=== PATIENT | female | born 1960 | race Caucasian/White ===

== ENCOUNTER 2023-09-05 08:11 | Emergency (ER) | payer MEDICAID, SELFPAY ==
[2023-09-05 08:21] VITALS: BP 105/71; PULSE 99; RESP 18; TEMP 36.6; O2SAT 92; BMI 27.5
--- NOTE | 2023-09-05 08:48 | ED_ITS ---
HPI - General Adult General Time Seen by Provider: 08:48 Date Seen: 09/05/23 Chief complaint: Fever Stated complaint: fever, chills Time Seen by Provider: 09/05/23 08:48 Source: patient and RN notes reviewed Mode of arrival: ambulatory Limitations: no limitations History of Present Illness HPI narrative: This 63-year-old female is coming in in hopes that we can make her feel better and figure out what is going on with her. Wednesday night she started feeling very poorly, she states she was continually throwing up. Did have some diarrhea yesterday. With this she has had cough is well, headache, sore throat. No urinary symptoms, no history of UTIs, no abdominal pain. Vomiting has gone away, she is able to drink. She wants to know if this is COVID or something else. She has not taken anything at home per nursing report as she does not like come medicines make her feel. She has had some body aches. She has not taken her temperature but has felt warm and chilled at times, presumed fever. No known ill contacts, no travel. Denies any prior heart or lung issues. Is on no chronic medicines. She is a nonsmoker. No chest pain, no shortness of breath. Related Data Previous Rx's Medication Instructions Recorded azithromycin 250 mg tablet See Rx Instructions PO .COMPLEX #6 09/05/23 tabs ondansetron 4 mg disintegrating 4 mg PO Q6H PRN nausea and 09/05/23 tablet vomiting #20 tabs oseltamivir 75 mg capsule (Tamiflu) 75 mg PO BID 5 days #10 caps 09/05/23 Allergies Allergy/AdvReac Type Severity Reaction Status Date / Time No Known Drug Allergies Allergy Verified 09/05/23 08:21 Review of Systems Status of ROS: Reports: 6 or more systems reviewed and unremarkable except as noted in History and below ON LICENSE OF [facility] PFS Social History Smoking Status: Never smoker How often do you have a drink containing alcohol: never AUDIT-C Alcohol total score: 0 Non-prescribed substance use: denies use Exam Const: Vital Signs, click to edit/add: Vital Signs - 24 hr 09/05/23 08:21 Temperature 98 F Pulse Rate [Pulse Oximeter] 99 Respiratory Rate 18 Blood Pressure [Ri ght Upper Arm] 105/71 Pulse Oximetry 92 Oxygen Delivery Me thod Room Air This 63-year-old female is alert, interactive, no apparent distress. She looks like she does not feel well, cheeks are flushed but no rash. Skin does feel warm but not diaphoretic. See no rashes. Pupils equal round reactive, sclera clear. Able to speak in complete sentences. Neck is supple, no cervical adenopathy or masses. She has some rhonchi on the right lung field but she is lying on her right side, no wheezing or crackles, good air entry, no tachypnea. Left lung side is clear. She did cough a little bit during the interaction. CV regular rate and rhythm, no murmur, normal S1-S2, no S3-S4. Abdomen is soft, nontender, nondistended, no organomegaly, normal bowel sounds. Patient was ambulatory into the ED of her own accord. Documenting provider has reviewed patient's vital signs: yes Course Course ED Course: Have reviewed with the patient that this certainly sounds to have the potential for 1 of the viral pathogens such as COVID or influenza. She has had both GI and respiratory symptoms with this. Will get a portable chest x-ray just to e leeure we are not missing a possible lobar type pneumonia, community-acquired pneumonia. Nursing staff collected triple swab on arrival and we are waiting this. Do not feel at this point she needs further laboratory workup. Reevaluation(s) Time of Reevaluation #1: 09:51 Reevaluation #1: Reviewed with patient her chest x-ray findings and that she has influenza A. She would like to try Tamiflu, is in with the window of affective miss. Will send Zofran in case she does have increased nausea with the Tamiflu. With a chest x-ray findings, difficult to say whether this is viral or perhaps she already has a bacterial pneumonia starting. Will cover with antibiotics as well. She is in agreement with this plan. She is stable to discharge to home for trial of outpatient management. Vital Signs Vital signs: Initial Vital Signs Temperature 98 F 09/05/23 08:21 Temperature Source Temporal Artery Scan 09/05/23 08:21 Pulse Rate 99 09/05/23 08:21 Respiratory Rate 18 09/05/23 08:21 Respiratory Effort Normal, Spontaneous, Non-Labored 09/05/23 08:21 Respiratory Depth Normal 09/05/23 08:21 Respiratory Pattern Normal 09/05/23 08:21 Blood Pressure 105/71 09/05/23 08:21 Blood Pressure Mean 82 09/05/23 08:21 Pulse Oximetry 92 09/05/23 08:21 Oxygen Delivery Method Room Air 09/05/23 08:21 Sepsis Recent Fever Within 48 Hours No 09/05/23 08:21 Sepsis Action Taken by Nursing No Action Required 09/05/23 08:21 Vital Signs Temperature 98 F 09/05/23 08:21 Pulse Rate 99 09/05/23 08:21 Respiratory Rate 18 09/05/23 08:21 Blood Pressure 105/71 09/05/23 08:21 Pulse Oximetry 92 09/05/23 08:21 Oxygen Delivery Method Room Air 09/05/23 08:21 Temperature 98 F 09/05/23 08:21 Pulse Rate 99 09/05/23 08:21 Respiratory Rate 18 09/05/23 08:21 Blood Pressure 105/71 09/05/23 08:21 Pulse Oximetry 92 09/05/23 08:21 Oxygen Delivery Method Room Air 09/05/23 08:21 Medical Decision Making Lab Data Lab results reviewed: Yes I reviewed the patient's lab results Labs: Lab Results 09/05/23 Range/Units 08:20 SARS-CoV-2 (PCR) Negative SARS-CoV-2 (Negative) Influenza Type A (PCR) POSITIVE PCR FLU A A (Negative) Influenza Type B (PCR) Negative PCR FLU B (Negative) RSV (PCR) Negative PCR RSV (Negative) Imaging Data Chest x-ray: Attestation: I have reviewed the pertinent imaging results. My impression: Do see small area of consolidation left chest, await Radiology over-read. Otherwise I do not appreciate any acute infiltrates elsewhere. Radiologist's impression: Patient: CAROLE ROBISON Facility:?[facility] Patient ID:?[id number] Site Patient ID:?[id number]. Site :?[id number] Study:?XRay Chest 1 VIEW PORTABLE-09/05/2023 9:12:19 AM Ordering Physician:Ailyn Victor Final Report: INDICATION: Cough and fever. COMPARISON: None. TECHNIQUE: Portable AP chest. FINDINGS: Patchy infiltrates left lingula. No pneumothorax or pleural effusion. No evidence of CHF. IMPRESSION: Patchy infiltrates left lingula. Dictated by Arnoldo Molina MD @ 09/05/2023 9:36:37 AM (Electronic Signature) Critical Care Time Critical Care Time Critical Care Time: No Discharge Plan Discharge Clinical Impression: Influenza A Patient Disposition: Home, Self-Care Condition: Stable Instructions: Influenza (ED) Additional Instructions: Need to start Tamiflu as soon as possible today for this to be effective in helping to diminish the influenza symptoms. If you start the Tamiflu after this evening, it will not be effective and is no longer recommended to take as you are out of the 48 hour window from onset of symptoms. Can use Zofran if needed for any further nausea or vomiting, note Tamiflu can make some people feel sick to their stomach. May need to premedicate with the Zofran in order to tolerate the Tamiflu. A Z-Thuan is also sent in as the chest x-ray did show an area of infiltrate, I cannot tell you if this is viral or perhaps already an early pneumonia setting in; thus, we will treat with an antibiotic as well. Drink plenty of fluids, appetite for solids should improve as you are feeling better. Need to quarantine at home until you are improving from your symptoms and have been fever free for 24 hours off Tylenol and ibuprofen. Certainly do recommend taking Tylenol or ibuprofen following bottle directions for fever control, also can help with body aches, headache. If you are not improving over the next week, have concerns for worsening at any point, do recommend re-evaluation. Prescriptions: New oseltamivir [Tamiflu] 75 mg capsule 75 mg PO BID 5 Days Qty: 10 0RF ondansetron 4 mg tablet,disintegrating 4 mg PO Q6H PRN (Reason: nausea and vomiting) Qty: 20 0RF azithromycin 250 mg tablet See Rx Instructions .ROUTE .COMPLEX Qty: 6 0RF Rx Instructions: For 250 mg dose pack: take 500 mg today (day 1), then 250 mg for 4 days (days 2-5) Follow Up/Referrals: Provider,Not a Local [Primary Care Provider] - Stand Alone Forms: [employer] Info Instructions
--- NOTE | 2023-09-05 08:57 | CRLHL7_ITS ---
For Patients: As a result of the Cures Act, medical imaging exams and procedure reports are released immediately into your electronic medical record. You may view this report before your referring provider. If you have questions, please contact your health care provider. INDICATION: Cough and fever. COMPARISON: None. TECHNIQUE: Portable AP chest. FINDINGS: Patchy infiltrates left lingula. No pneumothorax or pleural effusion. No evidence of CHF. IMPRESSION: Patchy infiltrates left lingula. Dictated by Arnoldo Molina MD @ 09/05/2023 9:36:37 AM (Electronically Signed)
[2023-09-05 09:11] LABS: PCR FLU A POSITIVE PCR FLU A (Negative); PCR FLU B Negative PCR FLU B (Negative); PCR RSV Negative PCR RSV (Negative); SARS PCR* Negative SARS-CoV-2 (Negative)
== END 2023-09-05 10:03 | disposition home or self-care (01) ==
PROVIDERS: Emergency Provider Family Medicine
DX: J10.1 Influenza due to other identified influenza virus with other respiratory manifestations (principal)
CPT/HCPCS: 71045; 87631; 99283; 99284

== ENCOUNTER 2025-03-18 07:57 | Emergency (ER) | payer MEDICAID, SELFPAY ==
--- OUTSIDE RECORDS SUMMARY | 2019-03-01 08:45 | XMS_ITS | Continuity of Care Document ---
Author Organization [facility] Address [address], [address] [place] [address] Phone Care Team Providers Care Scroll Assembler Name Role Phone Solomon Krause DO Unavailable Unavailable Allergies, Adverse Reactions, Alerts Substance Reaction Status Criticality No Known Allergies Active No Inform ation Procedures Procedure Date Offic Cons New/estab Mod Advance Directives Directive Yes / No Effective Date File Name No Information Encounters Encounter Description Practice Location Reason(s) For Visit Diagnoses Date Provider Providers Copied on Encounter Offic Cons New/estab Mod [facility], [address], [address], [place], [place], [id number], [place] tel:[phone] [facility]-Kevin francis Colon cancer screening (chief complaint) Colon cancer screening Nelida Cantu. [address], [place], [place], [id number], [place]. tel:[phone] Family History Family Member Type Diagnosis Age At Onset Father Problem (finding) malignant neoplasm of p ancreas Payers Payer name Insurance type Covered constitution party ID Authoriza tion(s) [facility] ([facility]) CI [id number] Social History Type Description Quantity Date Captured [...] Mental Status Date Cognitive Assessment Orientation - Jewett ed to time, place, person, situation. Patient Care Teams Name Effective Dates (start - stop) Status Members No Information
--- OUTSIDE RECORDS SUMMARY | 2019-03-01 08:45 | XMS_ITS | Continuity of Care Document ---
Author Organization [facility] Address [address], [address] [place] [address] Phone Care Team Providers Care Patient Services Technician Name Role Phone Solomon Krause DO Unavailable Unavailable Allergies, Adverse Reactions, Alerts Substance Reaction Status Criticality No Known Allergies Active No Inform ation Procedures Procedure Date Offic Cons New/estab Mod Advance Directives Directive Yes / No Effective Date File Name No Information Encounters Encounter Description Practice Location Reason(s) For Visit Diagnoses Date Provider Providers Copied on Encounter Offic Cons New/estab Mod [facility], [address], [address], [place], [place], [id number], [place] tel:[phone] [facility]-Kevin francis Colon cancer screening (chief complaint) Colon cancer screening Nelida Cantu. [address], [place], [place], [address], [place]. tel:[phone] Family History Family Member Type Diagnosis Age At Onset Father Problem (finding) malignant neoplasm of p ancreas Payers Payer name Insurance type Covered alliance party ID Authoriza tion(s) [facility] ([facility]) CI [id number] Social History Type Description Quantity Date Captured [...] Mental Status Date Cognitive Assessment Orientation - Patriot ed to time, place, person, situation. Patient Care Teams Name Effective Dates (start - stop) Status Members No Information
--- OUTSIDE RECORDS SUMMARY | 2019-07-28 10:46 | XMS_ITS | Continuity of Care Document ---
Author Organization [facility] Address [address] [place] [address] Phone Care Team Providers Care Produce Team Member Name Role Phone She Gallagher DO Unavailable Unavailable Allergies, Adverse Reactions, Alerts Substance Reaction Status Criticality No Known Allergies Active No Inform ation Medications Medication Instructions Dosage Effective Dates (start - stop) Status Comments VENTOLIN HFA (unknown strength) inhale 2 puff by inhalation route every 5 - 6 hours as needed Not Available - Active prednisone 20 mg tablet take 3 (0.5MG/KG) by ORAL route every day x 3 days, then 2 tabs daily for 3 days, then 1 tab daily for 3 days 0.5 MG/KG - No Longer Active Ventolin HFA 90 mcg/actuation aerosol inhaler inhale 2 puff by INHALATION route every 4 - 6 hours as needed 2 puff - No Longer Active Procedures Procedure Date Urgent Care Visit Nebulizer/Inhalation Treatment 19 Albuterol Unit Dose Ipratropium brom inh [place] u d Toradol Inj Per 15mg Therapeutic, Prophylactic Inj (Intramusc ular) Urgent Care Visit Advance Directives Directive Yes / No Effective Date File Name No Information Encounters Encounter Description Practice Location Reason(s) For Visit Diagnoses Date Provider Providers Copied on Encounter [facility], [address], [place], [place], [id number] , [place] tel:[phone] [facility] WW URI (chief complaint) Mild intermittent asthma, uncomplicated 9 Aileen Andres. [address], [place], [address], [place]. tel:[phone] Referring [place]: [place], [address] [place], [address] . tel:[phone] [facility], [address], [place], [place], [address] , [phone] [facility] WW URI (chief complaint) Musculoske letal pain (chief complaint) Mild intermittent asthma, uncomplicatedAcute upper respiratory infection, unspecifiedAcute myofascial strain of lumbosacral region, initial encounter 9 Angie [facility] Johana. [address] [facility], [address], [address], . tel:[phone] Referring [place]: [place], [address] [place], [address] . tel:[phone] Family History Family Member Type Diagnosis Age At Onset No Information Payers Payer name Insurance type Covered libertarian ID Authorpallavia alisson(s) [facility] ([facility]) CI [id number] Social History Type Description Quantity Date Captured Comments Alcohol Use Details Unknown Caffeine Use Details Unknown Tobacco Use Status No Information Smoking Status No Information Sex Female Vital Signs Date / Time: Height Weight BMI Pulse Rate Blood Pressure Temperature Respiratory Rate Body Surface Area Head Circumference Head Circ. Percentile Wt./Thanh. Percentile BMI percentile Pulse Ox Inhaled Ox 3:57 PM 65.00 in 65.771 kg (145.00 lbs) 24.1 3 kg/m eter (2) 80 /min 135/72 mm[Hg] 98.00 F 98 % Chief Complaint And Reason For Visit From encounter dated '07/28/2019 15:46'. URI (chief complaint). Description: The symptoms began 1 month ago. The patient presents with cough. The patient does not present with abdominal pain, arthralgia, chills, diarrhea, earache, fatigue, fever, headache, myalgia, nausea, pharyngitis or vomiting. She denies a history of chronic lung disease. The patient denies change in appetite, dizziness, dyspnea, hoarseness, lightheadedness and rash. Additional information: Pt with yellow/green sputum production. Pt denies painful respiration, shortness of breath. Pt with some irritated throat noted and nasal congestion. Pt denies sinus pressure. Pt with intermittent wheeze. Pt using ventolin w/ temp relief. Pt with h/o asthma x 7 yrs. Reason For Referral Reason For Referral No Information Plan Of Treatment Date Type Action Status Goal FOBT. Due on due Goal Colonoscopy. Due on due Goal H&P. Due on due Goal PAP / HPV. Due on 9 due Goal Mammogram. Due on 9 due Goal Lipid Panel. Due on due Goal Lipid Panel. Due on due Goal Colonoscopy. Due on due Goal PAP / HPV. Due on 9 due Goal Mammogram. Due on 9 due Goal H&P. Due on due Goal FOBT. Due on due History Of Present Illness Encounter Date Complaint History Of Prese nt Illness URI The symptoms beg an 1 month ago. The patient presents with cough. The patient does not present with abdominal pain, arthralgia, chills, diarrhea, earache, fatigue, fever, headache, myalgia, nausea, pharyngitis or vomiting. She denies a history of chronic lung disease. The patient denies change in appetite, dizziness, dyspnea, hoarseness, lightheadedness and rash. Additional information: Pt with yellow/green sputum production. Pt denies painful respiration, shortness of breath. Pt with some irritated throat noted and nasal congestion. Pt denies sinus pressure. Pt with intermittent wheeze. Pt using ventolin w/ temp relief. Pt with h/o asthma x 7 yrs. Musculoskeletal pain Onset: sudd en. Severity level is mild-moderate. It occurs constantly and is stable. Location: right back. The pain is aching. Context: there is no injury. The pain is aggravated by movement. There are no relieving factors. Associated symptoms include decreased mobility and spasms. Pertinent negatives include bruising, difficulty initiating sleep, joint instability, joint tenderness, limping, locking, nocturnal awakening, nocturnal pain, numbness, popping, swelling, tingling in the arms, tingling in the legs and weakness. Additional information: c/o rt low back pain since this AM was up all night coughing. URI The symptoms beg an 4 days ago. The symptoms have remained unchanged. The symptoms occur constantly. The patient presents with cough (cough is non-productive and occurs hourly) and congestion. The patient does not present with abdominal pain, anorexia, arthralgia, back pain, chills, diarrhea, earache, fatigue, fever, generalized weakness, headache, lymphadenopathy, myalgia, nausea, pharyngitis or vomiting. The symptoms are aggravated by lack of sleep. Interventions that have been tried have not provided any relief. The patient denies change in appetite, change in sleep cycle, constipation, diaphoresis, dizziness, dyspnea, hoarseness, increased abdominal girth, jaundice, lightheadedness, malaise, melena, neck stiffness, pruritus, rash, reduced urine output, somnolence, weight gain and weight loss. Additional information: hx of asthma using ventalinMDI freq since URI sx's. Functional Status Date Functional Assessmen t No Information Instructions Date Instruction Additional Infor nayeli Rest, fluidsSymptoma tic careTake medication as directedVentolin MDI prnIf persists or worsens f/u w/ PMD, if unable to f/u w/ PMD then RTC Related to Mild intermittent asthma, uncomplicated Apply ice to affecte d area 1st 24 hours then may alternate with1. wet warm compresses 3-4 x daily x 20 minutes2. stretching exercises and 3. follow with ice for affected areaAvoid aggravating activities: no lifting , pushing , pulling x 48 hoursNaprosyn as recommended for inflamation and painTake muscle relaxant prescription as directedBe aware of muscle relaxant/ pain medications sedative effectsInstructed on stretching exercisesReturn to urgent care if symptoms worsening (weakness, numbness, or increasing pain)Follow up in 1-2 weeks with primary care provider if not improved May consider PT if not improving after 2 weeks Related to Acute myofascial strain of lumbosacral region, initial encounter Instructed to increa se fluids, gargle with salt waterMay take OTC decongestant if needed-Use saline nasal spray daily and frequenltyTylenol or Motrin as needed for pain and feverRx sent to pharmacy for cough syrup at bedtime onlyNotified of potential for sedative effects of prescription cough syrup, do not drive while using itFollow up with Primary care provider in 1 week if not improving Related to Acute upper respiratory infection, unspecified Use Flovent/steroid inhaler as directed 2 x daily Use albuterol inhaler as needed for wheezing or coughing fitsPrescription sent to pharmacy, take as directedUse vaporizer at bed timeReturn to urgent care or ER if symptoms worsen (increased wheezing, difficulty breathing, or fever, )Follow up with primary care provider for evaluation in 3-5 days, sooner if not inprovingReturn to urgent care or ER for any difficulty breathing Related to Mild intermittent asthma, uncomplicated Assessments Type Assessment Date assessment Mild intermittent asthma, uncomp licated Patient Care Teams Name Effective Dates (start - stop) Status Members No Information
--- OUTSIDE RECORDS SUMMARY | 2019-07-28 10:46 | XMS_ITS | Continuity of Care Document ---
Author Organization [facility] Address [address] [place] [address] Phone Care Team Providers Care Separations Scientist Name Role Phone She Gallagher DO Unavailable [...] Diagnoses Date Provider Providers Copied on Encounter [facility], [address], [place], [place], [id number] , [place] tel:[phone] [facility] WW URI (chief complaint) Mild intermittent asthma, uncomplicated 9 Aileen Andres. [address], [place], [address], [place]. tel:[phone] Referring [place]: [place], [address] [place], [address] . tel:[phone] [facility], [address], [place], [place], [address] , [phone] [facility] WW URI (chief complaint) Musculoske letal pain (chief complaint) Mild intermittent asthma, uncomplicatedAcute upper respiratory infection, unspecifiedAcute myofascial strain of lumbosacral region, initial encounter 9 Angie [facility] Johana. [address] [facility], [address], [place], [address], . tel:[phone] Referring [place]: [place], [address] [place], [address] . tel:[phone] Family History Family Member Type Diagnosis Age At Onset No Information Payers Payer name Insurance type Covered democrat ID Authorpallavia alisson(s) [facility] ([facility]) CI [id number] Social History Type Description Quantity Date Captured [...]
--- OUTSIDE RECORDS SUMMARY | 2020-02-07 04:28 | XMS_ITS | Continuity of Care Document ---
Author Organization [facility] Address [address] [place] [address] Phone Care Team Providers Care Location Worker Name Role Phone Love Luna DO Unavailable Unavailable Allergies, Adverse Reactions, Alerts Substance Reaction Status Criticality CAT HAIR STANDARDIZED ALLERGENIC EXTRACT Active No Information No Known Drug Allergies Active No I nformation Medications Medication Instructions Dosage Effective Dates (start - stop) Status Comments Ventolin HFA 90 mcg/actuation aerosol inhaler inhale 2 puff by inhalation route every 4 - 6 hours as needed - Active pt will need appt for future refills Procedures Procedure Date Offic/outpt E&m Estab Low-mod 9 Preven Meds E&m Estab Pt; 40-64 019 Offic/outpt E&m New Mod-hi 45 3 Advance Directives Directive Yes / No Effective Date File Name No Information Encounters Encounter Description Practice Location Reason(s) For Visit Diagnoses Date Provider Providers Copied on Encounter [facility], [address] [place] [address], [id number], tel:[phone] [facility] No Information 0 Jeremy Elder. [address] [place] [address], [id number], [place]. tel:[phone] [facility], [address] [place] [address], [id number], tel:[phone] [facility] No Information 0 Faiza Altamirano. [address] [place] [address], [id number], [place]. tel:[phone] Offic/outpt E&m Estab Low-mod [facility], [address] [place] [address], [id number], [place] tel:[phone] [facility] vaginal polyp (chief complaint) Well woman exam with routine gynecological examCervical cancer screening 9 Jeremy Elder. [address] [place] [address], [id number], [place]. tel:[phone] Referring Provider: Love Luna DO, [address] [place] [address], [id number] . tel:[phone] Preven Meds E&m Estab Pt; 40-64 [facility], [address] [place] [address], [id number], [place] tel:[phone] [facility] Preventive exam (chief complaint) Encounter for general adult medical examination without abnormal findingsEncount er for screening for malignant neoplasm of colonEncounter for other screening for malignant neoplasm of breastSkin lesionUnspecifi ed asthma, uncomplicated 9 Jeremy Elder. [address] [place] [address], [id number], [place]. tel:[phone] Referring Provider: Love Luna DO, [address] [place] [address], [id number] . tel:[phone] Offic/outpt E&m New Mod-hi 45 [facility], [address] [place] [address], [id number], [place] tel:[phone] Thaddeus Whitman DO asthma (chief complaint) AsthmaAllergy to cats 3 J Carlos Wiggins. [address] [address], [place], [place], [id number], [place]. tel:[phone] Referring Provider: Lee Ann Whitman DO, [address] [address], [place], [address] . tel:[phone] Family History Family Member Type Diagnosis Age At Onset Paternal grandfather Problem (finding) Father Problem (finding) malignant neop lasm of pancreas (Cause Of ) 62 Mother Problem (finding) asthma Father Problem (finding) Allergies Mother Problem (finding) alcoholism 71 Immunizations Vaccine Date Status Comments Tdap administered Source: Other P rovider Pneumo (2 yrs or older)(PPV) administered Source: Other Provider Payers Payer name Insurance type Covered constitution party ID Authoriza tion(s) [facility] ([place]) CI [id number] Social History Type Description Quantity Date Captured Comments Sex Female Smoking Status No Information Chief Complaint And Reason For Visit No Information Reason For Referral Reason For Referral No Information Plan Of Treatment Date Type Action Status Goal H&P. Due on due Goal Mammogram. Due on 1 due Goal FOBT. Due on due Goal PAP / HPV. Due on 4 due Goal Lipid Panel. Due on 024 due Goal PAP / HPV. Due on 9 due Goal Colonoscopy. Due on 019 due Goal H&P. Due on due Referral Ordered: Manju Nicole MD -Dermatology (related to Skin lesion) ordered Referral Ordered: Josef Salvador MD -Gastroenterology (related to Encounter for screening for malignant neoplasm of colon) ordered Referral [place]: [place] [address] [place], [place], [phone] Ordered: Referrals: Dermatology. Manju Nicole MD. Evaluate and treat ordered Referral Referred To: Josef Salvador MD [address] [place], [place], [phone] Ordered: Referrals: Gastroenterology. Josef Salvador MD. Evaluate and treat ordered Future Order: Radiology Order Sc reening Mammogram W/Tomosynthesis (3D Mammo) (3D), Added on: New History Of Present Illness Encounter Date Complaint History Of Prese nt Illness vaginal polyp Pt reports her l ast PAP was in 2017 at time of getting and IUD inserted. She had vaginal polyp which was removed and was benign. She had a polyp which fell into her underwear last week from vaginal area. Had no bleeding, pain, spotting, itching. She reports that she has not felt anything else. She denies pelvic pain, vaginal bleeding, discharge, fever, chills, itching. no urinary symptoms. Had her IUD removed a few months after insertion due to heavy bleeding which resolved after the IUD was removed. She is not sexually active. She had BCC removed from her chest recently by derm, Dr Nicole Preventive exam Her menses is ab sent. Negative for: breast discharge, breast lump(s) and breast pain.Postmenopausal: Age: 57, Type: natural. Negative for Hormone replacement therapy. Menopausal symptoms negative for: hot flashes, insomnia, night sweats and vaginal dryness. Pertinent negatives include anxiety, depression, dyspareunia, urinary incontinence, vaginal discharge and vaginal itching.The patient states her exercise level is sedentary and frequency is never. The patient does not use tobacco. She does drink alcohol. Additional information: Pt's intake form, history and medications were reviewed at visit today. She reports having a PAP smear in 2016 which was negative. She is not sexually active and denies vaginal symptoms. She does not want to have PAP smear today. She denies vaginal bleeding and spotting. She denies breast and urinary symptoms. She has never had colonoscopy - has no family hx of colon cancer and denies blood in stool, black stools and stool changes. Pt uses ventolin inhaler for asthma - uses it sporadically, about every 3 days. Needs to use it when going to her daughter's house b/c they have a cat and she is allergic. She has had tdap and pneumonia vaccines in 2018. . asthma The initial visi t date was 05/09/2013. Aggravating factors include animals. Associated symptoms include awakening with cough, awakening with dyspnea, awakening with wheeze, dry cough, dyspnea at rest, dyspnea with moderate exercise, excessive sputum, irregular heartbeat/palpitations, pleuritic pain and productive cough. Pertinent negatives include hemoptysis, hoarseness, mucus plug production, oral thrush, post nasal drainage, sinusitis, stridor, tremor after inhaler use and wheezing. Additional information: went into [facility] & gave inhaler. even when running. daughter brought home home a cat. Functional Status Date Functional Assessmen t No Information Instructions Date Instruction Additional Infor mation No Information Assessments Type Assessment Date No Information Patient Care Teams Name Effective Dates (start - stop) Status Members No Information
--- OUTSIDE RECORDS SUMMARY | 2020-02-07 04:28 | XMS_ITS | Continuity of Care Document ---
Author Organization [facility] Address [address] [place] [address] Phone Care Team Providers Care Central Melt Specialist Name Role Phone Love Luna DO Unavailable [...] Copied on Encounter [facility], [address] [place] [address], [id number], tel:[phone] [facility] No Information 0 Jeremy Elder. [address] [place] [address], [id number], [place]. tel:[phone] [facility], [address] [place] [address], [id number], tel:[phone] [facility] No Information 0 Faiza Altamirano. [address] [place] [address], [id number], [place]. tel:[phone] Offic/outpt E&m Estab Low-mod [facility], [address] [place] [address], [id number], [place] tel:[phone] [facility] vaginal polyp (chief complaint) Well woman exam with routine gynecological examCervical cancer screening 9 Jeremy Elder. [address] [place] [address], [id number], [place]. tel:[phone] Referring Provider: Love Luna DO, [address] [place] [address], [id number] . tel:[phone] Preven Meds E&m Estab Pt; 40-64 [facility], [address] [place] [address], [id number], [place] tel:[phone] [facility] Preventive exam (chief complaint) Encounter for general adult medical examination without abnormal findingsEncount er for screening for malignant neoplasm of colonEncounter for other screening for malignant neoplasm of breastSkin lesionUnspecifi ed asthma, uncomplicated 9 Jeremy Elder. [address] [place] [address], [id number], [place]. tel:[phone] Referring Provider: Love Luna DO, [address] [place] [address], [id number] . tel:[phone] Offic/outpt E&m New Mod-hi 45 [facility], [address] [place] [address], [id number], [place] tel:[phone] Thaddeus Whitman DO asthma (chief complaint) AsthmaAllergy to cats 3 J Carlos Wiggins. [address] [address], [place], [place], [id number], [place]. tel:[phone] Referring Provider: Lee Ann Whitman DO, [address] [address], [place], [address] . tel:[phone] Family History Family Member Type Diagnosis Age [...] Provider Payers Payer name Insurance type Covered alliance party ID Authoriza tion(s) [facility] ([place]) CI [id number] Social History Type Description Quantity Date Captured [...] ordered Referral [place] To: [place] [address] [place], [place], [id number] Ordered: Referrals: Dermatology. Manju Nicole MD. Evaluate and treat ordered Referral Referred To: Josef Salvador MD [address] [place], [place], [phone] Ordered: Referrals: Gastroenterology. Josef Salvador MD. Evaluate [...] use and wheezing. Additional information: went into [facility] & gave inhaler. even when running. daughter brought home home a cat. Functional Status Date Functional Assessmen t No Information Instructions Date Instruction Additional Infor mation No Information Assessments Type Assessment Date No Information Patient Care Teams Name Effective Dates (start - stop) Status Members No Information
[2025-03-18 07:59] VITALS: BP 138/76; PULSE 93; RESP 18; TEMP 36.6; O2SAT 96; BMI 25.0
--- OUTSIDE RECORDS SUMMARY | 2025-03-18 08:00 | XMS_ITS | Clinical Summary ---
Author Organization [facility] Address [address] [place] [id number] Care Team Providers Care Freight Weigher Name Role Phone Cheryl Bosch DO Primary Care Provider [phone] Allergies No known active allergies Medications cholecalciferol (Vitamin D-3) 2,000 unit capsule Take 2,000 units by mouth once daily. Active albuterol HFA (PRO-AIR; VENTOLIN; PROVENTIL) 90 mcg/actuation inhalerIndicatio ns:Mild intermittent asthma without complication (HC) Inhale 1-2 Puffs by mouth every 4 hours if needed for Shortness Of Breath or Wheezing. 1 Each 4 4 Active polyethylene glycol-electroly te (GOLYTELY) 236-22.74-6.74 -5.86 gram suspensionIndica tions:Encounter for screening colonoscopy Drink 2 liters (half the bottle) the day before the procedure and 2 liters (half the bottle) 6 hours prior to procedure. 4000 mL 5 Active polyethylene glycol-electroly te (GOLYTELY) 236-22.74-6.74 -5.86 gram suspensionIndica tions:Encounter for screening colonoscopy Drink 2 liters the day before the procedure and 2 liters 6 hours prior to procedure. 4000 mL 5 02/21/20 25 Discontin ued(*Med complete/ Regimen complete/ Level of care change) Active Problems Problem Noted Date Diagnosed Date Mild intermittent asthma without complication Overview (07/08/2023): Diagnosed at age 52. Primary osteoarthritis of both knees 07/08/2023 History of melanoma 07/08/2023 Overview (07/08/2023): on R chest; does not recall when it was diagnosed Encounters Date Type Department Care Team Description 03/08/2025 Orders Only [facility] [address] [place] [address] Cheryl Bosch DO 1 scan: (1-Ord) [facility] 03/07/2025 8:52 AM CDT - 03/07/2025 11:59 PM CDT Hospital Encounter Philip Dunn MD 03/07/2025 Orders Only [facility] [address] [facility] [address] [place] [address] Philip Dunn MD <No scans attached> 03/07/2025 Surgery [facility] [address] [facility] [address] [place] [address] Philip Dunn MD Colonoscopy 02/28/[address] [address] Philip Dunn MD Appointment Reminder (Colonoscopy at [facility] 03/07/25) 02/20/[address] [address] Philip Dunn MD Colonoscopy Scheduled / Needs Meds 02/20/[address] [address] Cheryl Bosch DO Lab 01/09/[address] [address] Cheryl Bosch DO Referral from Last 3 Months Immunizations Immunization Administration Dates Next Due COVID-19 VACCINE SPIKEVAX (M ODERNA 50MCG/0.5ML) 12YO+ PFS 05/04/2024,06/01/2023 INFLUENZA, IIV3 PF (AGE >= 6 MO) 05/04/2024 Pneumococcal Conj 20-valent (Prevnar 20) 023 Zoster (Shingrix-RZV, recombinant) 09/23/2023, Family History Medical History Relation Name Comments Cancer-prostate Father Dementia Mother Brain cancer Paternal Grandmother Cancer-breast No Family History Diabetes No Family History Heart Disease No Family History Relation Name Status Comments Father Mother Paternal Grandmother Social History Tobacco Use Types Packs/Day Years Used Date Smoking Tobacco: Never Smokeless Tobacco: Never Tobacco Cessation:Counseling Given: Not Answered Alcohol Use Standard Drinks/Week Comments Yes 7 (1 standard drink = 0.6 oz pur e alcohol) PHQ-2 Answer Date Recorded PHQ-2 TOTAL SCORE 0 08/17/2024 Social Connections Answer Date Recorded Do you often feel lonely or isolated from those around you? 0 08/12/2024 Alcohol Use Answer Date Recorded How often do you have a drink containing alcohol ? 3 07/08/2023 How many drinks containing a lcohol do you have on a typical day when you are drinking? 1 07/08/2023 How often do you have five or more drinks on one occasion? 0 07/08/2023 Financial Resource Strain Answer Date R ecorded Difficulty of Paying Living Expenses 3 08/12/2024 Difficulty of Paying Living Expenses Not on file 08/12/2024 Food Insecurity Answer Date Recorded Do you worry your food will run out before you are able to buy more? 2 08/12/2024 Transportation Needs Answer Date Record ed Does lack of transportation keep you from medica l appointments? 1 08/12/2024 Does lack of transportation keep you from work, meetings or getting things that you need? 1 08/12/2024 Housing Stability Answer Date Recorded What is your housing situation today? 1 08/12/2024 Utilities Answer Date Recorded Do you have trouble paying f or utilities (for example, heat, electricity, water, phone)? 1 08/12/2024 Comments No Sex and Gender Information Value Date Recorded Sex Assigned at Not on file Legal Sex Female 7:12 AM FOREIGN COLLECTION CLERK Gender Identity Not on file Sexual Orientation Not on file Obstetrics History Last Filed Vital Signs Vital Sign Reading Time Taken Comments Blood Pressure 126/78 08/17/2024 10:35 AM FOREIGN COLLECTION CLERK Pulse 64 08/17/2024 10:35 AM FOREIGN COLLECTION CLERK Temperature - - Respiratory Rate - - Oxygen Saturation 98% 07/08/2023 7:33 AM FOREIGN COLLECTION CLERK Inhaled Oxygen Concentration - - Weight 78.6 kg (173 lb 3.2 oz) 08/17/2024 10:35 AM FOREIGN COLLECTION CLERK Height 165 cm (5' 4.96) 08/17/2024 10:35 AM FOREIGN COLLECTION CLERK Body Mass Index 28.86 08/17/2024 10:35 AM FOREIGN COLLECTION CLERK Plan of Treatment Health Maintenance Due Date Last Done Comments Tetanus booster 1973 Pap test for age 21-65 11/23/2008 11/23/2005 Influenza Vaccine (#1) 2025 05/04/2024 Mammogram for age 45-75 06/22/2025 06/22/2024 BMI (ht and wt on same day) for age 18+ 08/17/2025 08/17/2024, 07/08/2023 Depression screening for age 12+ 08/17/2025 08/17/2024, 08/17/2023, 07/09/2023, Additional history exists Lipids for age 45-75 07/08/2028 07/08/2023 Colonoscopy through age 75 03/07/2035 03/07/2025, RSV vaccine for adults or (1 - 1-dose 75+ series) 2037 HIV for age 15-65 Completed 07/08/2023 Hepatitis C screening for age 18-79 Completed 07/08/2023 Pneumococcal series for age 50+ Completed 07/08/2023 Zoster (shingles) series for age 50+ Completed 09/23/2023, 07/08/2023 COVID-19 vaccine series Completed 05/04/2024, 06/01 Hepatitis B series for 19+ Aged Out N o longer eligible based on patient's age to complete this topic Procedures Procedure Name Priority Date/Time Associated Diagnosis Comments COLONOSCOPY SCREENING Routine 03/07/2025 12:00 AM CDT Screening for colon cancer XR MAMMO BILAT SCREENING Routine 06/22/2024 3:29 PM FOREIGN COLLECTION CLERK Visit for screening mammogram ANTI HIV 1/2 Routine 07/08/2023 8:57 AM FOREIGN COLLECTION CLERK Screening for HIV (human immunodeficiency virus) ANTI HCV Routine 07/08/2023 8:57 AM FOREIGN COLLECTION CLERK Need for hepatitis C screening test LIPID PANEL W REFLEX MEASURED LDL Routine 07/08/2023 8:57 AM FOREIGN COLLECTION CLERK Screening for hyperlipidemia GYNECOLOGICAL PANEL Timed 11/23/2005 2:46 PM CDT SURGICAL PROCEDURE (TYPE PROCEDURE DESCRIPTION BELOW) Encounter for screening colonoscopy from Last 3 Months or Most Recently Relevant to Health Maintenance Results * COLONOSCOPY SCREENING (03/07/2025 12:00 AM CDT) Cheryl Bosch DO GI PROCEDURE ORD Final Res ult * XR MAMMO BILAT SCREENING (06/22/2024 3:29 PM FOREIGN COLLECTION CLERK) Anatomical Region Laterality Modality BREASTS, Breast Left, Breast Right Bilateral Mammography Impressions 06/23/2024 2:24 PM FOREIGN COLLECTION CLERK There is no radiographic evidence for malignancy. Recommend annual mammograms. MAMMOGRAM ASSESSMENT: ACR 1 Negative PATIENTS: You will also receive a letter with your examination results in an easy to read format. If you have questions about your results, please contact your referring provider. Narrative 06/23/2024 2:24 PM FOREIGN COLLECTION CLERK For Patients: As a result of the Century Cures Act, medical imaging exams and procedure reports are released immediately into your electronic medical record. You may view this report before your referring provider. If you have questions, please contact your health care provider. XR MAMMO BILAT SCREENING [[id number]] CLINICAL HISTORY: This is an asymptomatic 64 y.o. patient. INDICATION FOR EXAM: Mammogram Screening. TECHNIQUE: CC & MLO views were obtained. This study was evaluated with the assistance of Computer-Aided Detection. COMPARISON FILM: Priors not available at the time of this report. FINDINGS: There are scattered areas of fibroglandular density. There are no dominant masses, suspicious micro calcifications or areas of architectural distortion. us Cheryl Bosch DO MAMMO Final Resu lt * (ABNORMAL) LIPID PANEL W REFLEX MEASURED LDL [[id number]] (07/08/2023 8:57 AM FOREIGN COLLECTION CLERK) CHOLESTEROL,TOTAL 272(H) 100 - 199 mg/dL 07/08/2023 8:44 PM FOREIGN COLLECTION CLERK [facility] Comment: Cholesterol, Total Reference Ranges Desirable <200 mg/dL Borderline 200-239 mg/dL High >=240 mg/dL TRIGLYCERIDES 188(H) <150 mg/dL 07/08/2023 8:44 PM FOREIGN COLLECTION CLERK [facility] HDL CHOLESTEROL 61 >40 mg/dL 8:44 PM FOREIGN COLLECTION CLERK [facility] NON-HDL CHOLESTEROL 211(H) <145 mg/dl 07/08/2023 8:44 PM FOREIGN COLLECTION CLERK [facility] CHOL/HDL RATIO 4.46 <4.50 07/08/2023 8:44 PM FOREIGN COLLECTION CLERK [facility] LDL CHOLESTEROL 173(H) <=130 mg/dL 07/08/2023 8:44 PM FOREIGN COLLECTION CLERK [facility] VLDL CHOLESTEROL 38(H) <=30 mg/dL 07/08/2023 8:44 PM FOREIGN COLLECTION CLERK [facility] PROVIDER ORDERED STATUS RANDOM 07/08/2023 8:44 PM FOREIGN COLLECTION CLERK [facility] Blood BLOOD SPECIMEN / Unknown Venipuncture / Unknown 07/08/2023 8:57 AM FOREIGN COLLECTION CLERK 07/08/2023 9:04 AM FOREIGN COLLECTION CLERK us Cheryl Bosch DO CHEMISTRY Final Resu lt [facility] [address] [place] [id number], * ANTI HCV (07/08/2023 8:57 AM FOREIGN COLLECTION CLERK) HEPATITIS C ANTIBODY Non-Reacti ve Non-React saman 07/08/2023 8:51 PM FOREIGN COLLECTION CLERK [facility] Comment:Please note, per www .CDC.gov: If a patient is known to be at high risk of HCV infection, or is symptomatic, and the physician's suspicion of HCV infection is high, HCV RNA testing is often employed and is of diagnostic value, even after an initial negative anti-HCV test result. Blood BLOOD SPECIMEN / Unknown Venipuncture / Unknown 07/08/2023 8:57 AM FOREIGN COLLECTION CLERK 07/08/2023 9:03 AM FOREIGN COLLECTION CLERK Cheryl Laura Bosch DO SEND OUTS Final Resu lt Performing Organization Address City/[facility]/ZIP Co de Phone Number [facility] [address] [place] [address], * ANTI HIV 1/2 [[id number]] (07/08/2023 8:57 AM FOREIGN COLLECTION CLERK) Pathologist [facility] HIV-1/HIV-2 SCREEN Non-Reacti ve Non-Reacti ve 07/08/2023 8:45 PM FOREIGN COLLECTION CLERK [facility] Comment:HIV-1 p24 and HIV-1/ HIV-2 Ab Not Detected. Blood BLOOD SPECIMEN / Unknown Venipuncture / Unknown 07/08/2023 8:57 AM FOREIGN COLLECTION CLERK 07/08/2023 9:04 AM FOREIGN COLLECTION CLERK Cheryl Bosch DO SEND OUTS Final Resu lt Performing Organization Address [facility] Co de Phone Number [facility] [address] [place] [address], * GYNECOLOGICAL PANEL (11/23/2005 2:46 PM CDT) Pathologist [facility] CYTOLOGY CYTOPATHOLOGY REPORT [facility] Status: Final Report [id number] CLINICAL INFORMATION LMP : 11-02-05 Previous Pap Date : 1999 Previous PAP Dx : Negative Previous [place]/bx date : Not specified Appearance of Cervix : Not given [place]/Bx done today : No HPV Request : Reflex HPV test if PAP Dx ASCUS SPECIMEN SOURCE : Cervical/vaginal ThinPrep Vial, screening SPECIMEN ADEQUACY : Satisfactory for evaluation Endocervical component present. INTERPRETATION/RE SULT: Negative for intraepithelial lesion or malignancy. Cytology 1st Screener : iain Signed by: iain This specimen was screened by the FDA approved ThinPrep Imaging System and manually reviewed. NOTE: The Pap test is a screening technique, not a diagnostic procedure. It is used primarily to screen for squamous cancers and precursor lesions. Published studies have shown that it is subject to both false negative and false positive results. The pap test should not be used as the sole means to diagnose or exclude pre-malignant and malignant lesions. COLLECTED: 11/23/05 ACCESSIONED: 11/24/05 SIGNED: 12/02/05 [facility] 11/23/2005 2:46 PM CDT 11/24/2005 8:02 AM CDT Minerva Berrios MD PATHOLOGY/CYTOLOGY Final R esult [facility] INTERNAL ZIP [address] [address] from Last 3 Months or Most Recently Relevant to Health Maintenance Insurance [employer] Care Teams Freight Weigher Relationship Specialty Start Date End Date Cheryl Bosch DO [address] [place] [address] PCP - General Family Practice 07/08/23
--- NOTE | 2025-03-18 08:28 | ED.GENADULT ---
HPI - General Adult General Chief complaint: Animal Bite Stated complaint: cat bite - right hand Time Seen by Provider: 03/18/25 08:25 Source: patient Mode of arrival: ambulatory Limitations: no limitations History of Present Illness HPI narrative: 64-year-old female presenting today with a swollen right hand after her cat bit her yesterday. Cat bit her at the base of the ring finger. Today the dorsal surface of the hand is swollen and tender. She denies any systemic symptoms. Patient unaware of her last tetanus shot, no records available. Related Data Previous Rx's ?Medication ?Instructions ?Recorded amoxicillin 875 mg-potassium 1 tab PO BID 7 days #14 tabs 03/18/25 clavulanate 125 mg tablet Allergies Allergy/AdvReac Type Severity Reaction Status Date / Time No Known Drug Allergies Allergy Verified 03/18/25 08:04 Review of Systems Status of ROS: Reports: 6 or more systems reviewed and unremarkable except as noted in History and below PFSH PFS Social History Smoking Status: Never smoker How often do you have a drink containing alcohol: never AUDIT-C Alcohol total score: 0 Non-prescribed substance use: denies use Exam Narrative: Exam Narrative: Well-nourished well-developed patient in no acute distress. Alert and oriented. Answers questions appropriately. Mood and affect are appropriate. Thoughts are goal oriented and rational. No tangential or magical thinking noted. Patient speaks in full sentences without needing to catch her breath. HEENT: Normocephalic atraumatic. Pupils are equally round reactive to light. Extraocular muscles are intact. Extremities: Dorsal surface of the right hand is swollen, warm to touch. She has ecchymosis at the base of the finger. A bite robles are small and not bleeding. She has some scratches on the dorsal surface of the hand as well. Full range of motion of all the fingers. No pain at the wrist. Normal radial pulse normal capillary refills. Skin: Well perfused. Const: Vital Signs, click to edit/add: Vital Signs - 24 hr 03/18/25 07:59 Temperature 97.9 F Pulse Rate [Right Pulse Oximeter] 93 Respiratory Rate 18 Blood Pressure [Ri ght Upper Arm] 138/76 Pulse Oximetry 96 Oxygen Delivery Me thod Room Air Course Course ED Course: Tetanus shot updated today. Vital Signs Vital signs: Initial Vital Signs Temperature 97.9 F 03/18/25 07:59 Temperature Source Temporal Artery Scan 03/18/25 07:59 Pulse Rate 93 03/18/25 07:59 Pulse Rhythm Regular 03/18/25 07:59 Pulse Strength 3+ Normal 03/18/25 07:59 Respiratory Rate 18 03/18/25 07:59 Blood Pressure 138/76 03/18/25 07:59 Blood Pressure Mean 96 03/18/25 07:59 Blood Pressure Position Sitting 03/18/25 07:59 Pulse Oximetry 96 03/18/25 07:59 Oxygen Delivery Method Room Air 03/18/25 07:59 Vital Signs Temperature 97.9 F 03/18/25 07:59 Pulse Rate 93 03/18/25 07:59 Respiratory Rate 18 03/18/25 07:59 Blood Pressure 138/76 03/18/25 07:59 Pulse Oximetry 96 03/18/25 07:59 Oxygen Delivery Method Room Air 03/18/25 07:59 Temperature 97.9 F 03/18/25 07:59 Pulse Rate 93 03/18/25 07:59 Respiratory Rate 18 03/18/25 07:59 Blood Pressure 138/76 03/18/25 07:59 Pulse Oximetry 96 03/18/25 07:59 Oxygen Delivery Method Room Air 03/18/25 07:59 Medical Decision Making MDM Narrative Medical decision making narrative: 64-year-old female with a swollen hand secondary to a cat bite. Will place the patient on Augmentin. We discussed rest, elevation and icing. Discharge Plan Discharge Clinical Impression: Cat bite Patient Disposition: Home, Self-Care Condition: Stable Additional Instructions: Take all antibiotics as prescribed. Elevate the hand as much as possible over the next 48 hours. Ice multiple times per day. Do not apply ice directly to the skin do not ice for more than 20 minutes at a time. Prescriptions: New amoxicillin-pot clavulanate 875-125 mg tablet 1 tab PO BID 7 Days Qty: 14 0RF Follow Up/Referrals: Provider,Not a Local [Primary Care Provider, Family Practice] Stand Alone Forms: [employer] Info Instructions
[2025-03-18] MEDS: TETANUS/DIPHTH/PERTUSSIS 0.5 ML SYRINGE IM (08:40)
== END 2025-03-18 08:44 | disposition home or self-care (01) ==
LOC: ED 08:37
PROVIDERS: Emergency Provider Family Medicine; PCP Family Medicine
DX: S61.451A Open bite of right hand, initial encounter (principal); W55.01XA Bitten by cat, initial encounter; Z23 Encounter for immunization
CPT/HCPCS: 90471; 90715; 99283; 99284

== ENCOUNTER 2025-06-06 10:40 | Emergency (ER) | payer MEDICAID, SELFPAY ==
--- OUTSIDE RECORDS SUMMARY | 2019-03-01 08:45 | XMS_ITS | Continuity of Care Document ---
Author Organization [facility] Address [address], [address] [place] [address] Phone Care Team Providers Care Gambreler Helper Name Role Phone Solomon Krause DO Unavailable Unavailable Allergies, Adverse Reactions, Alerts Substance Reaction Status Criticality No Known Allergies Active No Inform ation Procedures Procedure Date Offic Cons New/estab Mod Advance Directives Directive Yes / No Effective Date File Name No Information Encounters Encounter Description Practice Location Reason(s) For Visit Diagnoses Date Provider Providers Copied on Encounter Offic Cons New/estab Mod [facility], [address], [address], [place], [place], [id number], [place] tel:[phone] [facility]-Kevin francis Colon cancer screening (chief complaint) Colon cancer screening Nelida Cantu. [address], [place], [place], [id number], [place]. tel:[phone] Family History Family Member Type Diagnosis Age At Onset Father Problem (finding) malignant neoplasm of p ancreas Payers Payer name Insurance type Covered libertarian ID Authoriza tion(s) [facility] ([facility]) CI [id number] Social History Type Description Quantity Date Captured Comments Alcohol Use Details Unknown Caffeine Use Details Unknown Tobacco Use Status Current non-smoker 21 Smoking Status Never smoker Non-Smoking Tobacco Use Details : No Details Available : No Details Available Sex Female Vital Signs Date / Time: Height Weight BMI Pulse Rate Blood Pressure Temperature Respiratory Rate Body Surface Area Head Circumference Head Circ. Percentile Wt./Thanh. Percentile BMI percentile Pulse Ox Inhaled Ox 1:48 PM 65.00 in 68.039 kg (150.00 lbs) 24.9 6 kg/m eter (2) 70 /min 120/80 mm[Hg] Chief Complaint And Reason For Visit From encounter dated '03/01/2019 13:45'. Colon cancer screening (chief complaint) Reason For Referral Reason For Referral No Information Plan Of Treatment Date Type Action Status Goal FOBT. Due on due Goal H&P. Due on due Goal Mammogram. Due on 9 due Goal Lipid Panel. Due on due Goal PAP / HPV. Due on 9 due Goal Colonoscopy. Due on due History Of Present Illness Encounter Date Complaint History Of Prese nt Illness Colon cancer screening (comments ) No GI endoluminal complaints. No previous colonoscopy. Father with history of pancreatic cancer. No family history of colon cancer or polyps. Colon cancer screening Functional Status Date Functional Assessmen t No Information Instructions Date Instruction Additional Infor nayeli 1. High fiber diet.2 . Colonoscopy planned.Risks, benefits and alternatives of colonoscopy including but not limited to infection, bleeding, perforation and oversedation discussed in detail with the patient today. Related to Colon cancer screening Assessments Type Assessment Date assessment Colon cancer screening 21 Mental Status Date Cognitive Assessment Orientation - Baxter ed to time, place, person, situation. Patient Care Teams Name Effective Dates (start - stop) Status Members No Information
--- OUTSIDE RECORDS SUMMARY | 2019-07-28 10:46 | XMS_ITS | Continuity of Care Document ---
Author Organization [facility] Address [address] [place] [address] Phone Care Team Providers Care Java Oracle Developer Name Role Phone She Gallagher DO Unavailable [...] Diagnoses Date Provider Providers Copied on Encounter [facility], [address], [place], [place], [id number] , [place] tel:[phone] [facility] WW URI (chief complaint) Mild intermittent asthma, uncomplicated 9 Aileen Andres. [address] [facility] [address], [place], [address], [place]. tel:[phone] Referring [place]: [place], [address] [place], [address] . tel:[phone] [facility], [address], [place], [place], [address] , [phone] [facility] WW URI (chief complaint) Musculoske letal pain (chief complaint) Mild intermittent asthma, uncomplicatedAcute upper respiratory infection, unspecifiedAcute myofascial strain of lumbosacral region, initial encounter 9 Angie [facility] Johana. [address] [facility], [address], [place], [address], . tel:[phone] Referring [place]: [place], [address] [place], [address] . tel:[phone] Family History Family Member Type Diagnosis Age At Onset No Information Payers Payer name Insurance type Covered democrat ID Authorpallavia alisson(s) [facility] ([facility]) CI [id number] Social History Type Description Quantity Date Captured [...]
--- OUTSIDE RECORDS SUMMARY | 2020-02-07 04:28 | XMS_ITS | Continuity of Care Document ---
Author Organization [facility] Address [address] [place] [phone] Phone Care Team Providers Care Gun Perforator Loader Name Role Phone Love Luna DO Unavailable [...] Copied on Encounter [facility], [address] [place] [address], [id number], tel:[phone] [facility] No Information 0 Jeremy Elder. [address] [place] [address], [id number], [place]. tel:[phone] [facility], [address] [place] [address], [id number], tel:[phone] [facility] No Information 0 Faiza Altamirano. [address] [place] [address], [id number], [place]. tel:[phone] Offic/outpt E&m Estab Low-mod [facility], [address] [place] [address], [id number], [place] tel:[phone] [facility] vaginal polyp (chief complaint) Well woman exam with routine gynecological examCervical cancer screening 9 Jeremy Elder. [address] [place] [address], [id number], [place]. tel:[phone] Referring Provider: Love Luna DO, [address] [place] [address], [id number] . tel:[phone] Preven Meds E&m Estab Pt; 40-64 [facility], [address] [place] [address], [id number], [place] tel:[phone] [facility] Preventive exam (chief complaint) Encounter for general adult medical examination without abnormal findingsEncount er for screening for malignant neoplasm of colonEncounter for other screening for malignant neoplasm of breastSkin lesionUnspecifi ed asthma, uncomplicated 9 Jeremy Elder. [address] [place] [address], [id number], [place]. tel:[phone] Referring Provider: Love Luna DO, [address] [place] [address], [id number] . tel:[phone] Offic/outpt E&m New Mod-hi 45 [facility], [address] [place] [address], [id number], [place] tel:[phone] Thaddeus Whitman DO asthma (chief complaint) AsthmaAllergy to cats 3 J Carlos Wiggins. [address] [address], [place], [place], [id number], [place]. tel:[phone] Referring Provider: Lee Ann Whitman DO, [address] [address], [place], [address] . tel:[phone] Family History Family Member Type Diagnosis Age [...] Provider Payers Payer name Insurance type Covered libertarian ID Authoriza tion(s) [facility] CI [id number] Social History Type Description Quantity Date Captured Comments Sex Female Smoking Status No Information Chief Complaint And Reason For Visit No Information Reason For Referral Reason For Referral No Information Plan Of Treatment Date Type Action Status Goal Lipid Panel. Due on 024 due Goal PAP / HPV. Due on 4 due Goal FOBT. Due on due Goal Mammogram. Due on 1 due Goal H&P. Due on due Goal H&P. Due on due Goal Colonoscopy. Due on 019 due Goal PAP / HPV. Due on 9 due Referral Ordered: Manju Nicole MD -Dermatology (related to Skin lesion) ordered Referral Ordered: Josef Salvador MD -Gastroenterology (related to Encounter for screening for malignant neoplasm of colon) ordered Referral [place] To: [place] [address] [place], [place], [phone] Ordered: Referrals: Dermatology. Manju Nicole MD. Evaluate and treat ordered Referral Referred To: Josef Salvador MD [address] [place], [place], [phone] Ordered: Referrals: Gastroenterology. Josef Salvador MD. Evaluate [...] use and wheezing. Additional information: went into [facility] & gave inhaler. even when running. daughter brought home home a cat. Functional Status Date Functional Assessmen t No Information Instructions Date Instruction Additional Infor mation No Information Assessments Type Assessment Date No Information Patient Care Teams Name Effective Dates (start - stop) Status Members No Information
--- OUTSIDE RECORDS SUMMARY | 2025-06-06 10:42 | XMS_ITS | Clinical Summary ---
Author Organization [employer] [facility] Address [address] [place] [address] Care Team Providers Care Earth Science Technician Name Role Phone Cheryl Bosch DO Primary Care Provider [phone] Allergies No known active allergies Medications cholecalciferol [...] prior to procedure. 4000 mL 5 Active Additional Information Patient not taking.Reported on 05/08/2025 FLUoxetine (PROZAC) 20 mg capsule Take 1 Capsule by mouth once daily. 5 Active Active Problems Problem Noted Date Diagnosed Date Mild intermittent asthma without complication Overview (07/08/2023): Diagnosed at age 52. Primary osteoarthritis of both knees 07/08/2023 History of melanoma 07/08/2023 Overview (07/08/2023): on R chest; does not recall when it was diagnosed Encounters Date Type Department Care Team Description 06/06/2025 Nurse Triage [facility] [address] [place] [address] [address] Cheryl Bosch, Throat Pain/problem 05/23/2025 10:40 AM CDT Nurse/Clinic Staff Only [facility] [address] [place] [address] Immunization/Injecti on 05/23/2025 Travel 05/23/2025 Telephone [facility] [address] [place] [address] [address] Cheryl Bosch DO Lab 05/08/2025 9:30 AM CDT Office Visit [facility] [address] [facility] [address] [place] [address] Emma Alvarez MD Derm Problem 05/08/2025 Travel 04/06/2025 2:15 PM CDT Orders Only [facility] [address] [place] [address] Lab, [place] [facility] 04/05/2025 Travel 03/08/2025 Orders Only [facility] [place] [address] [address] Cheryl Bosch, 1 scan: (1-Ord) [facility] 03/07/2025 8:52 AM CDT - 03/07/2025 11:59 PM CDT Hospital Encounter Philip Dunn MD 03/07/2025 Orders Only [facility] [address] [facility] [address] [place] [address] Philip Dunn MD <No scans attached> 03/07/2025 Surgery [facility] [address] [facility] [address] [place] [address] Philip Dunn MD Colonoscopy from Last 3 Months Immunizations Immunization Administration Dates Next Due COVID-19 VACCINE SPIKEVAX (M ODERNA 50MCG/0.5ML) 12YO+ PFS 05/04/2024,06/01/2023 INFLUENZA, IIV3 PF (AGE >= 6 MO) 05/23/2025,04/10 Pneumococcal Conj 20-valent (Prevnar 20) 023 Tdap 03/18/2025 Zoster (Shingrix-RZV, recombinant) 09/23/2023, Family History Medical [...] on file Legal Sex Female 7:12 AM [employer] Gender Identity Not on file Sexual Orientation Not on file Obstetrics History Last Filed Vital Signs Vital Sign Reading Time Taken Comments Blood Pressure 126/78 08/17/2024 10:35 AM [employer] Pulse 64 08/17/2024 10:35 AM [employer] Temperature - - Respiratory Rate - - Oxygen Saturation 98% 07/08/2023 7:33 AM [employer] Inhaled Oxygen Concentration - - Weight 78.6 kg (173 lb 3.2 oz) 08/17/2024 10:35 AM [employer] Height 165 cm (5' 4.96) 08/17/2024 10:35 AM [employer] Body Mass Index 28.86 08/17/2024 10:35 AM [employer] Plan of Treatment Upcoming Encounters Date Type Department Care Team (Late st Contact Info) Description 08/20/2025 7:25 AM [employer] Office Visit [facility] [address] [place] [address] Kathya Marquez MD [address] [place] [address] Health Maintenance Due Date Last Done Comments Pap test for age 21-65 11/23/2008 11/23/2005 Mammogram for age 45-75 06/22/2025 06/22/2024 BMI (ht and wt on same day) for age 18+ 08/17/2025 08/17/2024, 07/08/2023 Depression screening for age 12+ 08/17/2025 08/17/2024, 08/17/2023, 07/09/2023, Additional history exists Lipids for age 45-75 07/08/2028 07/08/2023 Colonoscopy through age 75 03/07/2035 03/07/2025, Tetanus booster 03/18/2035 03/18/2025 RSV vaccine for adults or (1 - 1-dose 75+ series) 2037 HIV for age 15-65 Completed 07/08/2023 Hepatitis C screening for age 18-79 Completed 07/08/2023 Pneumococcal series for age 50+ Completed 07/08/2023 Zoster (shingles) series for age 50+ Completed 09/23/2023, 07/08/2023 Influenza Vaccine Completed 05/23/2025, 05/04/2024 Hepatitis B series for 19+ Aged Out N o longer eligible based on patient's age to complete this topic Procedures Procedure Name Priority Date/Time Associated Diagnosis Comments COLONOSCOPY SCREENING Routine 03/07/2025 12:00 AM CDT Screening for colon cancer XR MAMMO BILAT SCREENING Routine 06/22/2024 3:29 PM [employer] Visit for screening mammogram ANTI HIV 1/2 Routine 07/08/2023 8:57 AM [employer] Screening for HIV (human immunodeficiency virus) ANTI HCV Routine 07/08/2023 8:57 AM [employer] Need for hepatitis C screening test LIPID PANEL W REFLEX MEASURED LDL Routine 07/08/2023 8:57 AM [employer] Screening for hyperlipidemia GYNECOLOGICAL PANEL Timed 11/23/2005 2 :46 PM CDT SURGICAL PROCEDURE (TYPE PROCEDURE DESCRIPTION BELOW) Encounter for screening colonoscopy from Last 3 Months or Most Recently Relevant to Health Maintenance Results * COLONOSCOPY SCREENING (03/07/2025 12:00 AM CDT) us Cheryl Bosch DO GI PROCEDURE ORD Final Res ult * XR MAMMO BILAT SCREENING (06/22/2024 3:29 PM [employer]) Anatomical Region Laterality Modality BREASTS, Breast Left, Breast Right Bilateral Mammography Impressions 06/23/2024 2:24 PM [employer] There is no radiographic evidence for malignancy. Recommend annual mammograms. MAMMOGRAM ASSESSMENT: ACR 1 Negative PATIENTS: You will also receive a letter with your examination results in an easy to read format. If you have questions about your results, please contact your referring provider. Narrative 06/23/2024 2:24 PM [employer]IAN For Patients: As a result of the 21st Century Cures Act, medical imaging exams and procedure reports are released immediately into your electronic medical record. You may view this report before your referring provider. If you have questions, please contact your health care provider. XR MAMMO BILAT SCREENING [[id number]] CLINICAL HISTORY: This is an asymptomatic 64 y.o. patient. INDICATION FOR EXAM: Mammogram Screening. TECHNIQUE: CC & MLO views were obtained. This study was evaluated with the assistance of Computer-Aided Detection. COMPARISON FILM: Priors not available at the time of this report. FINDINGS: There are scattered areas of fibroglandular density. There are no dominant masses, suspicious micro calcifications or areas of architectural distortion. Cheryl Bosch DO MAMMO Final Resu lt * (ABNORMAL) LIPID PANEL W REFLEX MEASURED LDL [[id number]] (07/08/2023 8:57 AM [employer]) CHOLESTEROL,TOTAL 272(H) 100 - 199 mg/dL 07/08/2023 8:44 PM [employer]IAN [facility] Comment: Cholesterol, Total Reference Ranges Desirable <200 mg/dL Borderline 200-239 mg/dL High >=240 mg/dL TRIGLYCERIDES 188(H) <150 mg/dL 07/08/2023 8:44 PM [employer]IAN [facility] HDL CHOLESTEROL 61 >40 mg/dL 8:44 PM [employer]IAN [facility] NON-HDL CHOLESTEROL 211(H) <145 mg/dl 07/08/2023 8:44 PM [employer]IAN [facility] CHOL/HDL RATIO 4.46 <4.50 07/08/2023 8:44 PM [employer]IAN [facility] LDL CHOLESTEROL 173(H) <=130 mg/dL 07/08/2023 8:44 PM [employer]IAN [facility] VLDL CHOLESTEROL 38(H) <=30 mg/dL 07/08/2023 8:44 PM [employer]IAN [facility] PROVIDER ORDERED STATUS RANDOM 07/08/2023 8:44 PM [employer]IAN [facility] Blood BLOOD SPECIMEN / Unknown Venipuncture / Unknown 07/08/2023 8:57 AM [employer]IAN 07/08/2023 9:04 AM [employer] Cheryl Bosch DO CHEMISTRY Final Resu lt [facility] [address] [place] [address], [place] * ANTI HCV (07/08/2023 8:57 AM [employer]IAN) Pathologist [facility] HEPATITIS C ANTIBODY Non-Reacti ve Non-React saman 07/08/2023 8:51 PM [employer]ARIAN [facility] Comment:Please note, per www .CDC.gov: If a patient is known to be at high risk of HCV infection, or is symptomatic, and the physician's suspicion of HCV infection is high, HCV RNA testing is often employed and is of diagnostic value, even after an initial negative anti-HCV test result. Blood BLOOD SPECIMEN / Unknown Venipuncture / Unknown 07/08/2023 8:57 AM [employer]IAN 07/08/2023 9:03 AM [employer]IAN Cheryl Bosch DO SEND OUTS Final Resu lt Performing Organization Address [facility] Co de Phone Number [facility] [address] [place] [address], [place] * ANTI HIV 1/2 [[id number]] (07/08/2023 8:57 AM [employer] LIBR[employer]IAN) [facility] HIV-1/HIV-2 SCREEN Non-Reacti ve Non-Reacti ve 07/08/2023 8:45 PM [employer]RARIAN [facility] Comment:HIV-1 p24 and HIV-1/ HIV-2 Ab Not Detected. Blood BLOOD SPECIMEN / Unknown Venipuncture / Unknown 07/08/2023 8:57 AM [employer] LIBRARIAN 07/08/2023 9:04 AM [employer]RARIAN Cheryl Bosch DO SEND OUTS Final Resu lt Performing Organization Address [facility] Co de Phone Number [facility] [address] [place] [address], [place] * GYNECOLOGICAL PANEL (11/23/2005 2:46 PM CDT) [facility] CYTOLOGY CYTOPATHOLOGY REPORT [facility] Status: Final Report [id number] CLINICAL INFORMATION LMP : 11-02-05 Previous Pap Date : 1999 Previous PAP Dx : Negative Previous [place]/bx date : Not specified Appearance of Cervix : Not given [place]/Bx done today : No HPV Request : [...] lesions. COLLECTED: 11/23/05 ACCESSIONED: 11/24/05 SIGNED: 12/02/05 [facility] 11/23/2005 2:46 PM CDT 11/24/2005 8:02 AM CDT us Minerva Berrios MD PATHOLOGY/CYTOLOGY Final R esult [facility] INTERNAL ZIP [address] [address] from Last 3 Months or Most Recently Relevant to Health Maintenance Insurance [facility] Care Teams Earth Science Technician Relationship Specialty Start Date End Date Cheryl Bosch DO [address] [place] [address] PCP - General Family Practice 07/08/23
[2025-06-06 10:44] VITALS: BP 138/83; PULSE 71; RESP 18; TEMP 36.1; O2SAT 97; BMI 24.6
--- NOTE | 2025-06-06 11:16 | ED_ITS ---
HPI - General Adult General Chief complaint: Unspecified Complaint, Adult Stated complaint: Lump in throat Time Seen by Provider: 06/06/25 11:16 History of Present Illness HPI narrative: Patient reports a feeling of a marble sized lump in throat and also a small lump under her tongue ever since a dentist appointment on 05/23/2025. She can also feel the saliva going over a lump when she swallows. Also describes coughing more the last three days. She called the [employer] triage line and was directed to the ER. 65-year-old presenting to the emergency department with concern of a lump in her throat and 1 under her tongue. She had a dental appointment about 2 weeks ago. Apparently mentioned the lump under her tongue as was recommended to suck on sour candy. Does not sound as though there is familiarity with retained ductal stone. Is not really having pain. Also now deeper in her throat she feels something that she thinks is about marble-sized and saliva seems to pass over that when swallowing. Not actually having difficulty managing secretions. Been coughing more as well. No shortness of breath. No fever. No vomiting. Later questioning after exam, she indicates that during procedure she thought a tool went kind of deep. Later she also mentions that had recently induced vomiting with her finger at 1 point. Also, it is apparent that cancer is a primary concern. Related Data Home Medications ?Medication ?Instructions ?Recorded ?Confirmed cholecalciferol (vitamin D3) 50 PO 06/06/25 mcg (2,000 unit) capsule fluoxetine 20 mg capsule 20 mg PO DAILY 06/06/2505/10 Allergies Allergy/AdvReac Type Severity Reaction Status Date / Time No Known Drug Allergies Allergy Verified 03/18/25 08:04 Review of Systems Status of ROS: Reports: 6 or more systems reviewed and unremarkable except as noted in History and below [facility] Social History Smoking Status: Never smoker How often do you have a drink containing alcohol: never AUDIT-C Alcohol total score: 0 Non-prescribed substance use: denies use Exam Narrative: Exam Narrative: Very pleasant. Energetic. Breathing easily. No stridor. Lungs are clear. Neck is supple without notable lymphadenopathy. Oropharynx is unremarkable. There are some prominent sublingual ducts noted but not inflamed. No palpable mass. Oropharynx looks good without inflammatory change. Dentition in good repair. No lesions. I did look about for a laryngoscope. Benzocaine spray was placed in the oropharynx. Return to examine with dental mirror. I can not visualize anything abnormal in the upper posterior oropharynx. Const: Vital Signs, click to edit/add: Vital Signs - 24 hr 06/06/25 10:44 Temperature 97.0 F L Pulse Rate [Pulse Oximeter] 71 Respiratory Rate 18 Blood Pressure [Ri ght Upper Arm] 138/83 Pulse Oximetry 97 Oxygen Delivery Me thod Room Air Documenting provider has reviewed patient's vital signs: yes Course Vital Signs Vital signs: Initial Vital Signs Temperature 97.0 F L 06/06/25 10:44 Temperature Source Temporal Artery Scan 06/06/25 10:44 Pulse Rate 71 06/06/25 10:44 Respiratory Rate 18 06/06/25 10:44 Blood Pressure 138/83 06/06/25 10:44 Blood Pressure Mean 101 06/06/25 10:44 Blood Pressure Position Sitting 06/06/25 10:44 Pulse Oximetry 97 06/06/25 10:44 Oxygen Delivery Method Room Air 06/06/25 10:44 Vital Signs Temperature 97.0 F L 06/06/25 10:44 Pulse Rate 71 06/06/25 10:44 Respiratory Rate 18 06/06/25 10:44 Blood Pressure 138/83 06/06/25 10:44 Pulse Oximetry 97 06/06/25 10:44 Oxygen Delivery Method Room Air 06/06/25 10:44 Temperature 97.0 F L 06/06/25 10:44 Pulse Rate 71 06/06/25 10:44 Respiratory Rate 18 06/06/25 10:44 Blood Pressure 138/83 06/06/25 10:44 Pulse Oximetry 97 06/06/25 10:44 Oxygen Delivery Method Room Air 06/06/25 10:44 Medications Administered Medications: Discontinued Medications Generic Name Dose Route Start Last Admin Trade Name Freq PRN Reason Stop Dose Admin Benzocaine 1 each 06/06/25 11:35 06/06/25 11:49 Benzocaine 20 % [place] PO 06/06/25 11:36 1 each ONCE ONE Administration Medical Decision Making MDM Narrative Medical decision making narrative: Had suspected more of a globus sensation. Prominent lingual ducts as well but nothing appears to be inflamed here. May have been scratched somehow during dental procedure or self-induced vomiting may have resulted in a scratch. Beyond what I can see here at this time. I did contact ENT to arrange follow- up. Spoke with ENT surgeon. No further recommendations at this time. Do not see any indication of infection, abscess that would prompt CT imaging or similar. I do not see any indication of cancer like process here. Further symptoms have been relatively brief. See patient discharge plan for further discussion To offer some reassurance, I think cancer, per your concern, is unlikely. I understand that you do not want to take any medicine. Would ask you to follow-up for re-evaluation at ear nose and throat clinic; scheduled below. Otherwise consider eating softer foods and avoiding worrying the area. Stay well-hydrated. Consider sleeping under the mist of cool mist humidifier. Was a pleasure to meet you. Follow up ENT appointment is scheduled at the [facility] on 06/11 at 10:45am. If you have any questions or need to reschedule, please call [phone]. [place] [id number] Medical Records Medical records reviewed: Yes I reviewed the patient's medical records Discharge Plan Discharge Clinical Impression: Lump in throat, Globus sensation Patient Disposition: Home, Self-Care Condition: Stable Additional Instructions: To offer some reassurance, I think cancer, per your concern, is unlikely. I understand that you do not want to take any medicine. Would ask you to follow-up for re-evaluation at ear nose and throat clinic; scheduled below. Otherwise consider eating softer foods and avoiding worrying the area. Stay well-hydrated. Consider sleeping under the mist of cool mist humidifier. Was a pleasure to meet you. Follow up ENT appointment is scheduled at the [facility] on 06/11 at 10:45am. If you have any questions or need to reschedule, please call [phone]. [place] [id number] [address] [place] [address] Prescriptions: No Action fluoxetine 20 mg capsule 20 mg PO DAILY cholecalciferol (vitamin D3) 50 mcg (2,000 unit) capsule PO Follow Up/Referrals: Danitza,Cheryl K, DO [Primary Care Provider, Family Practice] Stand Alone Forms: MyHealth Info Instructions
[2025-06-06] MEDS: BENZOCAINE 20 % SPRAY 1 EACH PO (11:49)
== END 2025-06-06 12:36 | disposition home or self-care (01) ==
PROVIDERS: Emergency Provider Family Medicine; PCP Family Medicine
DX: K14.9 Disease of tongue, unspecified (principal); R09.A2 Foreign body sensation, throat
CPT/HCPCS: 99282; 99283; 99284; A9270